=== PATIENT | male | born 1955 | race Hispanic/Latino ===

== ENCOUNTER 2017-11-01 12:52 | Emergency (ER) | payer OTHER, BC ==
[~2017-11-01] VITALS: Ht 160 cm; Wt 71.7 kg
[2017-11-01] MEDS ORDERED: OSELTAMIVIR PHO75 MG PO (16:59)
== END 2017-11-01 18:11 | disposition home or self-care (01) ==
LOC: ED 12:52
DX: S61.011A Laceration without foreign body of right thumb without damage to nail, initial encounter (principal); Z23 Encounter for immunization; Z79.899 Other long term (current) drug therapy; W45.8XXA Other foreign body or object entering through skin, initial encounter; Y92.69 Other specified industrial and construction area as the place of occurrence of the external cause; Y99.0 Civilian activity done for income or pay
CPT/HCPCS: 90471; 90715; 99282

== ENCOUNTER 2021-12-02 14:07 | Emergency (ER) | payer BC ==
[~2021-12-02] VITALS: Ht 162.6 cm; Wt 77.1 kg
[~2021-12-02 14:07] MED LIST: OSELTAMIVIR PHO75 MG PO
[2021-12-02] MEDS ORDERED: LABETALOL HCL100 MG PO (15:44)
[2021-12-02] MEDS ORDERED: TAMSULOSIN HCL0.4 MG PO (15:44)
[2021-12-02] MEDS ORDERED: FLOMAX0.4 MG PO (15:54)
== END 2021-12-02 16:58 | disposition home or self-care (01) ==
LOC: ED 14:07
DX: N13.1 Hydronephrosis with ureteral stricture, not elsewhere classified (principal); Z79.899 Other long term (current) drug therapy
CPT/HCPCS: 51702; 99283

== ENCOUNTER 2022-01-12 05:55 | Day surgery (SDC) | payer BC ==
[~2022-01-12] VITALS: Ht 162.6 cm; Wt 75.9 kg
[~2022-01-12 05:55] MED LIST changes: +FLOMAX0.4 MG PO; +LABETALOL HCL100 MG PO; +TAMSULOSIN HCL0.4 MG PO
--- NOTE | 2022-01-12 09:09 | NUR ---
PT'S CHECKED ON. HAS NO REQUESTS AT THIS TIME.
--- NOTE | 2022-01-12 10:10 | NUR ---
PT LAYING ON HER LEFT SIDE WATCHING TV. PT REPORTS HER PAIN IS BETTER. PT HAS NO REQUESTS AT THIS TIME. CALL LIGHT WITH PT.
--- NOTE | 2022-01-12 10:56 | NUR ---
01/12/22 1056 Isabel Singh 1030 PT ARRIVED IN PACU SLEEPY WITH NO C/O'S. HILLS TO CBI WITH BRIGHT YELLOW URINE PRESENT. 1040 PARTIAL RETURNED TO PT. 1050 NO C/O'S. VISITING WITH STAFF.
--- NOTE | 2022-01-12 11:17 | NUR ---
Pt arrives to [facility] PACU. Pt awake, resting in bed. Vital signs stable, on room air. CBI WNL. IVF infusing WNL. Pt denies pain or needs at this time.
--- NOTE | 2022-01-12 12:05 | NUR ---
Post op vitals done, VSS. Pt A+O, states no pain or nausea. Jello and ice water provided. IVF infusing WNL. Pt Lolly in room, attentive to patient and engaged in care, conversational with nurses.
--- NOTE | 2022-01-12 13:23 | NUR ---
Post op vitals taken, stable. Pt A+O, lunch ordered, tolerating clear liquids at this time. Pt family at bedside. CBI wnl, drainage light pink in color with no clots noted.
[2022-01-12] MEDS ORDERED: OXYCODONE HCL5 MG PO (14:37)
[2022-01-12] MEDS ORDERED: LEVOFLOXACIN250 MG PO (14:37)
--- NOTE | 2022-01-12 15:30 | NUR ---
Rounded on patient who is resting in bed, he states no pain, no nausea, and no needs at this time. CBI nearly clamped- rate slowed significantly from immediately post op, urine light pink in color with no clots noted. Pt on room air, A+O, stable. Tolerated regular diet for lunch. Call light in reach.
--- NOTE | 2022-01-12 18:37 | NUR ---
In patient room to assess CBI, clamped at this time. Drainage light pink in color, no clots noted, 900 ml urine out and CBI bag marked. Pt reports no pain or needs, tolerating regular diet. Pt in room, asks questions about medications, education provided, receptive and verbalize understanding.
--- NOTE | 2022-01-12 19:15 | NUR ---
BEDSIDE REPORT FROM FAVIAN RN, PT RESTING IN BED HER REPORTS NO PAIN, HIS IS AT BEDSIDE TALKING WITH AT THIS TIME. IRRIGATION FLUIDS HAVE BEEN CLAMPED SINCE 1830. URINE IN HILSL TUBE IS YELLOW WITH SLIGHT PINK HUE. PLAN FOR PT TO DISCHARGE IN AM
--- NOTE | 2022-01-12 20:09 | NUR ---
PT GIVEN FRESH WATER FOR HERSELF, AND SNACKS PROVIDED, CHO/VAN PUDDING, GRANOLA BARS. PT SMILED, AND TOOK THE CHOCOLATE PUDDING.
--- NOTE | 2022-01-12 22:10 | NUR ---
ROUNDING ON PT, HE IS RESTING IN BED REPORTS NO PAIN OR NAUSEA. ASSESS HILLS TUBING NOTED TO BE PINK TO RED NO CLOTS/SEDAMENT NOTED, EMPTIED HILLS FOR 650ML. NO DISTRESS NOTED. 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 NO OTHER QUESTIONS/CONCERNS OR REQUESTS AT THIS TIME.
--- NOTE | 2022-01-13 01:13 | NUR ---
PT RESTING IN BED, EYES CLOSED, RR 16 BPM, NO DISTRESS OBSERVED, PT RESTING IN BED QUIETLY AND RELAXED POSITION. CBI REMAINS CLAMPED, URINE IN HILLS TUBE MEDIUM YELLOW, QUANTITY SUFFICIENT, PT DENIES PAIN.
--- NOTE | 2022-01-13 03:36 | NUR ---
PT RESTING IN BED EYES CLOSED, NO DISTRESS NOTED 96% OXYGEN SATURATION ON ROOM AIR, HEART RATE 50 BPM. NO DISTRESS NOTED. HILLS PATENT, COLOR IS DARK PINK AT THIS TIME TO YELLOW.
--- NOTE | 2022-01-13 05:58 | NUR ---
PT HAS SLEPT WELL OVER SHIFT, HE DENIES PAIN OR NAUSEA OVER SHIFT. HIS CBI HAS BEEN CLAMPED SINCE 182901/12/2022, URINE HAS RANGED FROM PIN/RED TO YELLOW, NO CLOTS/SEDIMENT NOTED OVER SHIFT, QUANTITY SUFFICIENT URINE OUT PLUS. V/S STABLE. NO NEW CONCERNS OVER SHIFT
--- NOTE | 2022-01-13 06:14 | NUR ---
AM ASSESSMENT COMPLETE, PT REPORTS NO PAIN, HE DENIES A SNACK THIS AM, HE IS ALERT AND ORIENTED. V/S STABLE, HILLS EMPTIED, YELLOW BRIGHT PINK IN COLOR. WITH IN EXPECTATION POST TURP CBI
--- NOTE | 2022-01-13 07:20 | NUR ---
Report recieved from Linda RN at bedside. Pt present in room, pt and family questions answered, and educated about discharge and plan of care. no further questions or needs identified at this time. call light in reach.
--- NOTE | 2022-01-13 08:45 | NUR ---
In pt room to administer scheduled ABX and medication. VSS, assessment complete. Pt eating breakfast and denies further needs at this time. call light in reach.
[2022-01-13] MEDS ORDERED: FLOMAX0.4 MG PO (08:48)
--- NOTE | 2022-01-13 09:03 | NUR ---
MED REC COMPLETE
--- NOTE | 2022-01-13 09:54 | OR ---
[facility] [address] [place], [place] [address] Signed DATE OF OPERATION: 01/12/2022 SURGEON: Elva Murphy MD PREOPERATIVE DIAGNOSES: 1. Acute urinary retention with associated bilateral hydroureteronephrosis and acute kidney injury. 2. Trilobar benign prostatic hyperplasia with lower urinary tract symptoms. 3. Evidence of long-standing bladder outlet obstruction. POSTOPERATIVE DIAGNOSES: 1. Acute urinary retention with associated bilateral hydroureteronephrosis and acute kidney injury. 2. Trilobar benign prostatic hyperplasia with lower urinary tract symptoms. 3. Evidence of long-standing bladder outlet obstruction. NAMES OF PROCEDURES: 1. Diagnostic cystoscopy. 2. Urethral dilation using Mckenzie sounds from 18-Wallisian to 28-Wallisian. 3. Transurethral resection of the Prostate SURGEON: Elva Murphy MD ANESTHESIA: General EBL: 50 ccs COMPLICATIONS: None DRAINS: [address] davies catheter, connected to continuous bladder irrigation INDICATIONS FOR PROCEDURE: Mr Ohara is a very pleasant 66 year old male with a history of elevated PSA who presented to me a couple years ago to be evaluated for possible prostate cancer. He ultimately underwent an MRI guided biopsy of the prostate, which turned out to be negative. Around a month ago, he experienced a sudden bout of urinary retention that required placement of a davies catheter in the ED. Not long after, he underwent a diagnostic cystoscopy which revealed severe trilobar prostatic hypertrophy with obvious bladder outlet obstruction. He subsequently agreed to undergo TURP, with full know of the risk of surgery, including but no limited to hematuria, sexual dysfunction, and urinary incontinence. Electronically Signed By: ELVA MURPHY MD 01/13/22 0954 PATIENT NAME: KAREN INMAN OPERATIVE REPORT DATE OF : 53 REPORT #: [id number] PHYSICIAN: ELVA MURPHY MD PCP: ANNA CARLSON MD REPORT IS CONFIDENTIAL AND NOT TO BE RELEASED WITHOUT AUTHORIZATION [facility] [address] [place], [place] [address] Signed OPERATIVE FINDINGS: 1. NALDO was performed which revealed a very large gland, around 80 gm, but no evidence of palpable nodules 2. The patient's large median lobe, and lateral lobes were resected using a 24 Fr Bipolar Loop. Due to the sheer size of the gland, the resection time was about 2.5 hours. He also bled heavily for most of the procedure, making visualization difficult at times. 3. During the procedure, I noted a good deal of hemorrhage coming from behind the resectoscope (near the external sphincter). Due to the extent of the bleeding, I was forced to cauterize this large vessel that was distal to my operative area. The patient's derrellw made aware of this after surgery. 4. At the end of the procedure, a [address] davies catheter was inserted into the patient's bladder, and was connected to continous bladder irrigation. DESCRIPTION OF PROCEDURE: After informed consent was obtained, the patient was taken to the operating room where he was transferred from the [facility] to the operating room table. General anesthesia was induced, and he was placed in the dorsal lithotomy position. A NALDO was then performed. Please see the above findings. The patient's urethral meatus was then dilated from 18 Fr to 28 Fr without difficulty. 60 ccs of sterile lubricant was then injected into the patient's urethra. A 26 Fr sheath was inserted into the patient's bladder using a 30 degree lens and a visual obturator. This was then switched out for the resectoscope. I resected the large, protuberant median lobe first. All the while, I had good visualization of the bilateral ureteral orifices, which remained free of iatrogenic injury throughout the entire surgery. Once the median lobe was removed, I then resected both the left and right lateral lobes of the prostate using the 24 Fr Bipolar Loop. At one point, I switched to the button in an attempt to get better control of the bleeding, however, this was unsuccessful. The patient was administered TXA by anesthesia, which did help with the bleeding overall. A karel syringe was used multiple times during the procedure to extract the prostate chips from the patient's bladder. By the end of the procedure, I was satisfied that all of the patient's obstructing prostate tissue had been resected, and hemostatis had been achieved quite nicely. Again, the resection time was longer today due to the size of the patient's prostate. A sensor wire was inserted into the 26 Fr sheat at the end of the procedure. The sheath was removed, and a 22 Fr davies catheter was inserted into the patient's bladder over he sensor wire. The catheter balloon was filled with 30 ccs of sterile water, and was then manually flushed multiple times to ensure adequate placement. The catheter was then connected to continuous bladder irrigation. The procedure was then terminated. He will no be transferred to the PACU for post operative care. Electronically Signed By: ELVA MURPHY MD 01/13/22 0954 PATIENT NAME: KAREN INMAN OPERATIVE REPORT DATE OF : 53 REPORT #: [id number] PHYSICIAN: ELVA MURPHY MD PCP: ANNA CARLSON MD REPORT IS CONFIDENTIAL AND NOT TO BE RELEASED WITHOUT AUTHORIZATION [facility] [address] [place] [id number] Signed DISPOSITION: I discussed the details of today's surgery wit the patient's , and answered all of her questions. She was made aware that I did cauterize a blood vessel that was relatively close to his external sphincter. Hopefully, this won't result in any significant side effects such as incontinence, however, we won't know for sure until his davies catheter is removed. He is scheduled to have his catheter removed in two days. The patient will remain in the hospital overnight on CBI, which will be weaned off slowly. His regular diet will be restarted, and he will be given pain control as needed. He will be sent home on oral ABXs and pain control (Oxycodone 5 mg) as needed. DICTATION ENDS HERE MD DEANA Saucedo/SHELBY /[id number] Copies: ~ Electronically Signed By: ELVA MURPHY MD 01/13/22 0954 PATIENT NAME: KAREN INMAN OPERATIVE REPORT DATE OF : 53 REPORT #: [id number] PHYSICIAN: ELVA MURPHY MD PCP: ANNA CARLSON MD REPORT IS CONFIDENTIAL AND NOT TO BE RELEASED WITHOUT AUTHORIZATION
--- NOTE | 2022-01-13 10:24 | NUR ---
Discharge education provided. verbal and written material provided, pt and verbalize understanding. All questions answered. davies care education, complete. CBI D/C, davies port capped. IV removed WNL. Pt VSS, on Room air, no pain or nausea. rx and instructions given. all personal belongings returned. Pt transported via WC, to provide ride home.
--- NOTE | 2022-01-14 09:40 | PATH ---
[facility] [address] [place], [place] [address] Signed SPECIMEN(S): A PROSTATE CHIPS SPECIMEN SOURCE: A. PROSTATE CALOS CLINICAL HISTORY: Severe trilobar BPH; acute renal failure FINAL PATHOLOGIC DIAGNOSIS: Prostate chips, transurethral resection: - Benign prostatic hyperplasia. NAL:[facility]:C2NR MICROSCOPIC EXAMINATION: Histologic sections of all submitted blocks are examined by light microscopy. These findings, together with the gross examination, support the pathologic diagnosis. GROSS DESCRIPTION: The specimen, labeled "KOBE, prostate chips," is received in formalin and consists of irregular shaped pink-vazquez, rubbery tissue fragments that in aggregate measure 10.5 x 6.9 x 2.5 cm. The specimen weight 36 g. Approximately 55% of the specimen is submitted in 13 cassettes (A1-A13). JS (under the direct supervision of a pathologist) The Gross Description was prepared using a voice recognition system. The report was reviewed for accuracy; however, sound-alike word errors, addition and/or deletions may occur. If there is any question about this report, please contact Client Services. PERFORMING LABORATORY: The technical component was performed by [email or web address], [address] [place] [id number] (CLIA# [id number]). [email or web address] [address] [address] (CLIA# [id number]). Diagnostician: Glendy Zepeda MD Pathologist Electronically Signed 01/14/2022 PATIENT NAME: KAREN INMAN PATHOLOGY DATE OF : 53 REPORT #: [id number] PHYSICIAN: [facility] PCP: ANNA CARLSON MD REPORT IS CONFIDENTIAL AND NOT TO BE RELEASED WITHOUT AUTHORIZATION [address] [address] Signed Copies: ~ PATIENT NAME: KAREN INMAN PATHOLOGY DATE OF : 53 REPORT #: [id number] PHYSICIAN: [facility] PATH[facility] PCP: ANNA CARLSON MD REPORT IS CONFIDENTIAL AND NOT TO BE RELEASED WITHOUT AUTHORIZATION
== END 2022-01-13 10:15 | disposition home or self-care (01) ==
LOC: DS 05:55 → MS 11:40 → DS 01-13 10:15
PROVIDERS: ATTEND Urology
PROC: 0VB08ZZ Excision of Prostate, Via Natural or Artificial Opening Endoscopic (ICD-10-PCS; principal; 2022-01-12 07:30)
DX: N40.1 Benign prostatic hyperplasia with lower urinary tract symptoms (principal); N13.30 Unspecified hydronephrosis; N13.8 Other obstructive and reflux uropathy; R33.9 Retention of urine, unspecified; I10 Essential (primary) hypertension; N17.9 Acute kidney failure, unspecified; R97.20 Elevated prostate specific antigen [PSA]
CPT/HCPCS: C1769; J0690; J0696; J1100; J1885; J2250; J2405; J2704; J2765; J3010; J7121